=== PATIENT | female | born 1935 | race Caucasian/White ===

== ENCOUNTER 2017-01-17 17:33 | Inpatient (IN) | payer OTHER ==
[~2017-01-17] VITALS: Ht 160 cm; Wt 69.9 kg
--- NOTE | ~2017-01-17 | EKG ---
[address] [place] [address] ELECTROCARDIOGRAM REPORT Name: BC CALVIN Room #: 304-P ADM IN M.R.#: [id number] Admission: 01/17/17 Attend Phys: Gabino De Leon MD Discharge: Date of : 33 Report #: [id number] THIS REPORT FOR: //name// [facility] ED Test Date: 2017-01-17 Test Time: 18:15:03 Pat Name: BC CALVIN Department: Room: [facility] Gender: F Character Impersonator: FARHEEN : 1935 Requested By: Filemon Florentino Order Number: [id number] MD: Ildefonso Whitney Measurements Intervals [place] Rate: 68 P: 32 MD: 178 QRS: -34 QRSD: 99 T: 169 QT: 402 QTc: 428 Interpretive Statements Sinus rhythm Multiple premature complexes, vent & supraven LVH with secondary repolarization abnormality Inferior infarct, old Poor R wave progression Compared to ECG 03/08/2008 14:02:04 Ventricular and supraventricular ectopy is now present Electronically Signed On 01-18-2017 18:18:42 CDT by Ildefonso Whitney [email or web address] <ELECTRONICALLY SIGNED> By: Ildefonso Whitney MD, [facility] 01/18/17 1818 14 14 Ildefonso Whitney MD, [facility] /EPI
[2017-01-17 17:34] VITALS: BP 150/106
[2017-01-17 18:04] LABS: URINE BILIRUBIN NEGATIVE (Negative); URINE BLOOD NEGATIVE (Negative); URINE COLOR YELLOW; URINE GLUCOSE-RANDOM* NEGATIVE (Negative); URINE KETONES TRACE (Negative); URINE LEUKOCYTES-REFLEX NEGATIVE (Negative); URINE PROTEIN (DIPSTICK) TRACE (Negative); URINE SPECIFIC GRAVITY 1.015 (1.003-1.035); URINE UROBILINOGEN 0.2 E.U./dl (0.2-1.0)
[2017-01-17 18:32] LABS: HEMATOCRIT 40.8 % (37.0-47.0); MCH 31.1 pg (26.0-34.0); MCHC 34.3 g/dL (28.0-37.0); MCV 90.6 fL (80.0-100.0); PLATELET COUNT 315 thou/uL (150-400); RDW 12.9 % (10.5-14.5); WBC 17.8 thou/uL (4.0-11.0)
[2017-01-17 18:33] LABS: MANUAL DIFF YES
[2017-01-17 18:40] LABS: ANION GAP 9 mmol/L (7-16); BUN 30 mg/dL (7-18); CALCIUM 9.5 mg/dL (8.5-10.1); CHLORIDE 99 mmol/L (98-107); CO2 31 mmol/L (21-32); GLUCOSE 132 mg/dL (74-106); SODIUM 139 mmol/L (136-145)
[2017-01-17 18:42] LABS: POTASSIUM 2.4 mmol/L (3.5-5.1)
[2017-01-17 18:50] LABS: ALBUMIN 3.5 g/dL (3.4-5.0); ALKALINE PHOSPHATASE 73 U/L (46-116); SGOT 41 U/L (15-37); SGPT 38 U/L (30-65); TOTAL BILIRUBIN 0.9 mg/dL (<0.1-1.0); TOTAL PROTEIN 7.2 g/dL (6.4-8.2); TROPONIN-I < 0.04 ng/mL (<0.04-0.07)
[2017-01-17 19:12] LABS: ABSOLUTE NEUTROPHILS 15.7 thou/uL (1.4-8.2); HYPOCHROMASIA SLIGHT; TOTAL CELL COUNT 100
[2017-01-17 19:13] LABS: ANISOCYTOSIS SLIGHT
[2017-01-17] MEDS ORDERED: PRAVACHOL40 MG PO (19:20)
[2017-01-17] MEDS ORDERED: LASIX 40 MG TAB40 M2 PO (19:21)
[2017-01-17] MEDS ORDERED: ENALAPRIL MALEA20 MG PO (19:21)
[2017-01-17] MEDS ORDERED: TENORMIN50 MG PO (19:21)
[2017-01-17 19:35] VITALS: BP 124/63
[2017-01-17 19:55] VITALS: BP 132/51
[2017-01-17 20:15] VITALS: BP 142/59
[2017-01-17] MEDS ORDERED: AFEDITAB CR60 MG PO (21:28)
[2017-01-17] MEDS ORDERED: NIFEDIPINE ER60 M1 PO (21:30)
[2017-01-18] VITALS: BP 147/69
[2017-01-18 04:00] VITALS: BP 147/68
[2017-01-18 06:57] LABS: HEMATOCRIT 36.9 % (37.0-47.0); HEMOGLOBIN 12.7 gm/dL (12.0-15.0); MCH 31.2 pg (26.0-34.0); MCHC 34.4 g/dL (28.0-37.0); MCV 90.8 fL (80.0-100.0); RBC 4.07 mil/uL (4.20-5.00); RDW 12.7 % (10.5-14.5); WBC 12.4 thou/uL (4.0-11.0)
[2017-01-18 07:25] LABS: CALCIUM 8.4 mg/dL (8.5-10.1); CREATININE 0.7 mg/dL (0.6-1.0)
[2017-01-18 08:00] VITALS: BP 126/67
[2017-01-18] MEDS ORDERED: PRAVACHOL40 MG PO (10:23)
[2017-01-18 16:00] VITALS: BP 111/64
[2017-01-18 19:55] VITALS: BP 128/62
[2017-01-19 04:10] VITALS: BP 128/65
[2017-01-19 04:15] VITALS: BP 134/88
[2017-01-19 06:34] LABS: ALBUMIN 2.9 g/dL (3.4-5.0); CALCIUM 8.5 mg/dL (8.5-10.1); CREATININE 0.6 mg/dL (0.6-1.0); PHOSPHORUS 2.4 mg/dL (2.5-4.9); POTASSIUM 3.6 mmol/L (3.5-5.1)
[2017-01-19 07:14] VITALS: BP 134/77
[2017-01-19 08:08] VITALS: BP 134/77
[2017-01-19 11:05] VITALS: BP 134/77
[2017-01-19 12:45] VITALS: BP 134/77
== END 2017-01-19 13:46 | disposition home health service (06) | DRG 683 ==
LOC: ER 17:33 → EROBS 19:15 → 3N 19:15
PROVIDERS: Hospitalist; Nurse Practitioner Family; Physician Assistant
DX: N17.9 Acute kidney failure, unspecified (principal); E44.1 Mild protein-calorie malnutrition; E87.6 Hypokalemia; I10 Essential (primary) hypertension; E78.00 Pure hypercholesterolemia, unspecified; M19.90 Unspecified osteoarthritis, unspecified site; E78.5 Hyperlipidemia, unspecified; D72.829 Elevated white blood cell count, unspecified; R32 Unspecified urinary incontinence; W18.30XA Fall on same level, unspecified, initial encounter; Z68.27 Body mass index [BMI] 27.0-27.9, adult; Y93.89 Activity, other specified; Y92.89 Other specified places as the place of occurrence of the external cause; Y99.8 Other external cause status; Z79.899 Other long term (current) drug therapy; Z88.0 Allergy status to penicillin
CPT/HCPCS: 10094

== ENCOUNTER 2017-07-05 09:33 | Inpatient (IN) | payer OTHER ==
[~2017-07-05] VITALS: Ht 162.6 cm; Wt 72.1 kg
--- NOTE | ~2017-07-05 | HC ---
[facility] [place] [address] CONSULTATION Name: BC CALVIN Room #: 446-P [facility] IN .R.#: [id number] Admission: 07/05/17 Attend Phys: Gabino De Leon MD Discharge: 07/10/17 Date of : 33 Report #: [id number] THIS REPORT FOR: //name// CC: Gabino Roy DATE OF SERVICE: 07/06/2017 HISTORY OF PRESENT ILLNESS: The patient is an 82-year-old white female, who lives at home alone. She has had problems with multiple falls the past week. She notes her legs gave out. Complains of rolling the left ankle. X-rays were negative. She has been seen by a geriatric nurse practitioner, who recommended stopping the hydrochlorothiazide, dropping the dose of Lasix. It was thought that dehydration and being ill have contributed. PAST MEDICAL HISTORY: Includes hypertension, hyperlipidemia, unstable gait, for which she utilizes a walker. ALLERGIES: PENICILLIN. MEDICATIONS: Please see the full medication listing. FAMILY HISTORY: Noncontributory. HABITS: No history of tobacco or alcohol abuse. SOCIAL HISTORY: Lives in an apartment alone. No steps. She has family in [place]. She has quaker support locally and has a neighbor that is a nurse that checks in on her from her apartment complex. REVIEW OF SYSTEMS: Did not offer any current complaints of chest pain, shortness of breath or abdominal discomfort. No focal extremity pain complaints. PHYSICAL EXAMINATION: GENERAL: She is a pleasant, 82-year-old, right-handed, white female, overweight, no obvious distress. She is alert, pleasant. VITAL SIGNS: Last recorded temperature is 98.4, pulse 67, respirations 20, blood pressure 137/79. HEENT: Appeared to be benign. No obvious visual field neglect. EXTREMITIES: She has IV in the left upper extremity and may have some difficulty moving that left hand more from the IV than from actual weakness. Her lower extremities, her strength is probably a grade 3+/5. DTRs are 1 to trace. Functionally, she is max assist with sit to stand. Gait was 2 feet max assist with a front-wheeled walker. Physical therapy noted she was retropulsive, leaning to the right, and occupational therapy, actually [address] [address] CONSULTATION Name: BC CALVIN Room #: 446-P [facility] IN [facility]#: [id number] Admission: 07/05/17 Attend Phys: Gabino De Leon MD Discharge: 07/10/17 Date of : 33 Report #: [id number] documented some left-sided inattention. ASSESSMENT: An 82-year-old white female with the following problem list: 1. Would like to rule out a cerebrovascular accident as a possibility with the retropulsive tendency with the right-sided lean and even some left inattention has been noted in therapy. 2. Recurrent falls. 3. Complaint of rolling left ankle. X-rays were negative. We will add an Aircast brace to see if that will help. 4. Dehydration. Holding diuretics. 5. Hypertension. 6. Hyperlipidemia. 7. Premorbid history of unstable gait, utilizing a walker. 8. Chronic lower extremity edema. PLAN: Therapies are working with her and we will assess further regarding her rehab therapy needs and potential for rehabilitation as she further stabilizes. Thank you for asking us to assist in this patient's care. <ELECTRONICALLY SIGNED> By: Boy Capps MD 08/04/17 1408 1554 0056 Boy Capps MD /nt
--- NOTE | ~2017-07-05 | EKG ---
[address] [address] [facility] [place] [address] ELECTROCARDIOGRAM REPORT Name: BC CALVIN Room #: 446-P ADM IN .R.#: [id number] Admission: 07/05/17 Attend Phys: Gabino De Leon MD Discharge: Date of : 33 Report #: [id number] THIS REPORT FOR: //name// [facility] ED Test Date: 2017-07-05 Test Time: 10:01:03 Pat Name: BC CALVIN Department: Room: 446 Gender: F Senior Manager [employer]: [place] : 1935 Requested By: Mary Warren Order Number: [id number] MD: Ildefonso Whitney Measurements Intervals [place] Rate: 84 P: 51 CA: 181 QRS: -32 QRSD: 104 T: 40 QT: 373 QTc: 441 Interpretive Statements Sinus rhythm Multiple premature complexes, vent & supraven Left ventricular hypertrophy Inferior infarct, old Poor R wave progression Compared to ECG 01/17/2017 18:15:03 No significant change was found Electronically Signed On 07-05-2017 17:31:43 SALES STORE CHECKER by Ildefonso Whitney [email or web address] <ELECTRONICALLY SIGNED> By: Ildefonso Whitney MD, [facility] 07/05/17 1731 1001 1001 Ildefonso Whitney MD, [facility] /EPI
--- NOTE | ~2017-07-05 | HC ---
[facility] [place] [address] CONSULTATION Name: BC CALVIN Room #: 446-P ADM IN M.R.#: [id number] Admission: 07/05/17 Attend Phys: Gabino De Leon MD Discharge: Date of : 33 Report #: [id number] THIS REPORT FOR: //name// CC: Gabino Roy DATE OF SERVICE: 07/08/2017 REFERRING PROVIDER: Kelvin Lomas MD. REASON FOR CONSULTATION: Cholecystitis and leukocytosis. HISTORY OF PRESENT ILLNESS: The patient is an 82-year-old female who lives at home alone and has suffered intermittent falls which she states usually happen after being dehydrated for her. The patient was admitted 3 days ago after another subsequent fall over the past week where she was lying down on the ground and her neighbor found her and called EMS. The patient states she caught a stomach bug last weekend where she complained of nausea, crampy abdominal pain and dehydration. The patient has been admitted here for full evaluation and supportive care and has made marked improvement. As the patient has continued with a low level leukocytosis of approximately 17,000, a CT scan of the abdomen and pelvis was obtained yesterday, which returned consistent with possible acute cholecystitis with significant gallbladder wall thickening and pericholecystic edema. For that reason, I have been asked to evaluate. Upon exam today, the patient states she has no abdominal complaints whatsoever, is tolerating oral intake and having no further abdominal symptoms. PAST MEDICAL HISTORY: Hypertension, hyperlipidemia, stress incontinence, recurrent falls. HOME MEDICATIONS: Hydrochlorothiazide, Lasix, potassium, atenolol, nifedipine, pravastatin, and enalapril. ALLERGIES: TO PENICILLIN AND SEASONAL ALLERGIES. FAMILY HISTORY: Reviewed and noncontributory. SOCIAL HISTORY: The patient does not utilize tobacco, alcohol or illicit drugs. REVIEW OF SYSTEMS: GENERAL: The patient denies nocturnal fevers or chills. HEENT: No change in vision, change in hearing. NECK: No swelling or difficulty swallowing. HEART: No chest pain or palpitations. LUNGS: No cough or shortness of breath. ABDOMEN: No nausea, no vomiting currently. [facility] [address] [place] [address] CONSULTATION Name: BC CALVIN Room #: 446-P [facility] IN [facility]#: [id number] Admission: 07/05/17 Attend Phys: Gabino De Leon MD Discharge: Date of : 33 Report #: [id number] GENITOURINARY: No dysuria or hematuria. ENDOCRINE: No polyuria, polydipsia. HEMATOLOGIC: No history of bleeding or easy bruising. EXTREMITIES: No history weakness or limited range of motion. NEUROLOGIC: Positive history of syncope and fall. PSYCHIATRIC: No history of anxiety or depression. PHYSICAL EXAMINATION: VITAL SIGNS: Temperature 97.7, pulse 71, respirations 18, blood pressure 156/67. She stands 5 feet 4 inches tall and weighs 159 pounds. GENERAL: She is alert and oriented, in no acute distress. HEENT: Normocephalic, atraumatic. Pupils equal, round, reactive to light. NECK: Supple, without lymphadenopathy. Trachea midline. HEART: Regular rate and rhythm. LUNGS: Clear to auscultation bilaterally. ABDOMEN: Soft, nontender, nondistended. She has no guarding, rebound or peritoneal signs or symptoms whatsoever. GENITOURINARY: Normal external female genitalia. EXTREMITIES: No clubbing, cyanosis or edema. NEUROLOGIC: Cranial nerves 2-12 are grossly intact. PSYCHIATRIC: Normal mood and affect. SKIN AND INTEGUMENT: No abnormal lesions or moles. LABORATORY AND X-RAY DATA: CBC shows white blood cell count of 17,800, hemoglobin 12.5, platelets 400,000. Creatinine is 0.7. CRP is elevated at 97.4. Sed rate is elevated at 52. Procalcitonin is normal at 0.31. MRI of the head showed generalized volume loss and chronic small vessel changes with no acute abnormality. Her BNP was recently elevated at [address] scan of the abdomen and pelvis performed late yesterday showed gallbladder wall thickening with pericholecystic edema consistent with acute cholecystitis. ASSESSMENT AND PLAN: An 82-year-old female with recurrent falls and a persistent leukocytosis, who underwent CT scan imaging of the abdomen and pelvis yesterday showing acute cholecystitis with gallbladder wall thickening and pericholecystic edema. The patient did have symptoms consistent with cholecystitis over 1 week ago, which has completely resolved and she is absolutely asymptomatic today. Due to her leukocytosis and the inflammation seen on CT, I do recommend initiating antibiotic therapy and IN LIGHT OF HER PENICILLIN ALLERGY, she will be placed on Levaquin and Flagyl at this time. I suspect she will make complete recovery from her cholecystitis with utilization of antibiotic therapy alone, although should she decompensate due to the ongoing inflammation of greater than 1 week, she would necessitate urgent percutaneous cholecystostomy tube placement by IR. At this time, I am hopeful she will continue to improve with just antibiotic therapy alone, however. [facility] [address] [place] [address] CONSULTATION Name: BC CALVIN Room #: 446-P ADM IN M.R.#: [id number] Admission: 07/05/17 Attend Phys: Gabino De Leon MD Discharge: Date of : 33 Report #: [id number] I sincerely appreciate this consult. I will follow closely and leave any further recommendations in the patient's chart as appropriate. <ELECTRONICALLY SIGNED> By: Philippe Cespedes MD, FACS 07/09/17 1015 1132 192 Philippe Cespedes MD, FACS /nt
[~2017-07-05 09:33] MED LIST: AFEDITAB CR60 MG PO; ENALAPRIL MALEA20 MG PO; LASIX 40 MG TAB40 M2 PO; NIFEDIPINE ER60 M1 PO; PRAVACHOL40 MG PO; TENORMIN50 MG PO
[2017-07-05 09:34] VITALS: BP 169/58
[2017-07-05 09:58] LABS: ABSOLUTE NEUTROPHILS 14.1 thou/uL (1.4-8.2); BASOPHILS 0.4 % (0.0-2.0); EOSINOPHILS 1.4 % (0.0-3.0); HEMATOCRIT 38.1 % (37.0-47.0); HEMOGLOBIN 12.9 gm/dL (12.0-15.0); LYMPHOCYTES 6.9 % (24.0-44.0); MCH 30.8 pg (26.0-34.0); MCHC 33.9 g/dL (28.0-37.0); MONOCYTES 7.2 % (1.0-8.0); PLATELET COUNT 337 thou/uL (150-400); POLYS 84.1 % (36.0-66.0); RBC 4.19 mil/uL (4.20-5.00); RDW 13.7 % (10.5-14.5); WBC 16.8 thou/uL (4.0-11.0)
[2017-07-05 10:09] LABS: ANION GAP 12 mmol/L (7-16); BUN 42 mg/dL (7-18); CALCIUM 8.6 mg/dL (8.5-10.1); CHLORIDE 101 mmol/L (98-107); CO2 26 mmol/L (21-32); GLUCOSE 138 mg/dL (74-106); POTASSIUM 3.3 mmol/L (3.5-5.1); SODIUM 139 mmol/L (136-145)
[2017-07-05 10:16] LABS: ALBUMIN 2.8 g/dL (3.4-5.0); SGOT 23 U/L (15-37); SGPT 23 U/L (30-65); TOTAL BILIRUBIN 0.6 mg/dL (<0.1-1.0); TROPONIN-I < 0.04 ng/mL (<0.06)
[2017-07-05 10:30] LABS: URINE BILIRUBIN NEGATIVE (Negative); URINE BLOOD NEGATIVE (Negative); URINE CLARITY CLEAR; URINE COLOR YELLOW; URINE GLUCOSE-RANDOM* NEGATIVE (Negative); URINE KETONES TRACE (Negative); URINE LEUKOCYTES NEGATIVE (Negative); URINE NITRITE NEGATIVE (Negative); URINE PROTEIN (DIPSTICK) NEGATIVE (Negative); URINE UROBILINOGEN 0.2 E.U./dl (0.2-1.0)
[2017-07-05] MEDS ORDERED: HYDROCHLOROTH12.5 M1 PO (11:38)
[2017-07-05] MEDS ORDERED: LASIX 40 MG TAB40 M2 PO (11:38)
[2017-07-05] MEDS ORDERED: ATENOLOL 50MG T50 M1 PO (11:39)
[2017-07-05] MEDS ORDERED: K-DUR 20 MEQ T20 MEQ PO (11:39)
[2017-07-05 14:31] VITALS: BP 117/61
[2017-07-05 17:16] VITALS: BP 133/82
[2017-07-05 19:50] VITALS: BP 121/62
[2017-07-06] VITALS (7 sets, daily range): BP systolic 131–1222; BP diastolic 59–95
[2017-07-06 03:55] LABS: ABSOLUTE NEUTROPHILS 12.1 thou/uL (1.4-8.2); BASOPHILS 0.4 % (0.0-2.0); EOSINOPHILS 2.7 % (0.0-3.0); HEMATOCRIT 34.9 % (37.0-47.0); HEMOGLOBIN 11.9 gm/dL (12.0-15.0); LYMPHOCYTES 7.1 % (24.0-44.0); MCH 30.9 pg (26.0-34.0); MCHC 34.1 g/dL (28.0-37.0); MCV 90.6 fL (80.0-100.0); PLATELET COUNT 337 thou/uL (150-400); POLYS 80.8 % (36.0-66.0); RBC 3.85 mil/uL (4.20-5.00); RDW 13.4 % (10.5-14.5)
[2017-07-06 04:02] LABS: CALCIUM 8.2 mg/dL (8.5-10.1); CREATININE 0.7 mg/dL (0.6-1.0); MAGNESIUM 1.8 mg/dL (1.8-2.4); POTASSIUM 3.5 mmol/L (3.5-5.1)
[2017-07-07 03:13] VITALS: BP 136/62
[2017-07-07 06:52] LABS: HEMATOCRIT 38.1 % (37.0-47.0); HEMOGLOBIN 12.7 gm/dL (12.0-15.0); MCH 30.7 pg (26.0-34.0); MCHC 33.3 g/dL (28.0-37.0); MCV 92.1 fL (80.0-100.0); RBC 4.14 mil/uL (4.20-5.00); RDW 13.7 % (10.5-14.5); WBC 17.7 thou/uL (4.0-11.0)
[2017-07-07 06:55] LABS: CALCIUM 8.6 mg/dL (8.5-10.1); CREATININE 0.6 mg/dL (0.6-1.0)
[2017-07-07 08:00] VITALS: BP 125/58
[2017-07-07 16:00] VITALS: BP 144/72
[2017-07-07 19:15] VITALS: BP 168/74
[2017-07-08 03:35] VITALS: BP 151/75
[2017-07-08 03:54] LABS: HEMATOCRIT 37.6 % (37.0-47.0); HEMOGLOBIN 12.5 gm/dL (12.0-15.0); MCH 30.3 pg (26.0-34.0); MCHC 33.2 g/dL (28.0-37.0); MCV 91.2 fL (80.0-100.0); RBC 4.13 mil/uL (4.20-5.00); RDW 13.2 % (10.5-14.5); WBC 17.8 thou/uL (4.0-11.0)
[2017-07-08 04:01] LABS: CALCIUM 8.3 mg/dL (8.5-10.1); CREATININE 0.7 mg/dL (0.6-1.0); POTASSIUM 3.8 mmol/L (3.5-5.1)
[2017-07-08 08:38] VITALS: BP 156/67
[2017-07-08 08:43] VITALS: BP 156/67
[2017-07-08 17:46] VITALS: BP 128/69
[2017-07-08 20:01] VITALS: BP 135/55
[2017-07-09 05:45] VITALS: BP 138/63
[2017-07-09 07:09] LABS: HEMATOCRIT 37.1 % (37.0-47.0); HEMOGLOBIN 12.1 gm/dL (12.0-15.0); MCH 30.1 pg (26.0-34.0); MCHC 32.6 g/dL (28.0-37.0); MCV 92.2 fL (80.0-100.0); RBC 4.02 mil/uL (4.20-5.00); RDW 13.3 % (10.5-14.5); WBC 13.9 thou/uL (4.0-11.0)
[2017-07-09 07:16] LABS: CALCIUM 8.6 mg/dL (8.5-10.1); CREATININE 0.8 mg/dL (0.6-1.0); MAGNESIUM 1.9 mg/dL (1.8-2.4); POTASSIUM 4.3 mmol/L (3.5-5.1)
[2017-07-09 08:30] VITALS: BP 138/67
[2017-07-09 16:30] VITALS: BP 146/64
[2017-07-09 19:55] VITALS: BP 144/58
[2017-07-10 04:34] VITALS: BP 142/59
[2017-07-10 06:13] LABS: HEMATOCRIT 35.5 % (37.0-47.0); HEMOGLOBIN 11.8 gm/dL (12.0-15.0); MCH 30.5 pg (26.0-34.0); MCHC 33.3 g/dL (28.0-37.0); MCV 91.4 fL (80.0-100.0); RBC 3.89 mil/uL (4.20-5.00); RDW 13.6 % (10.5-14.5); WBC 13.2 thou/uL (4.0-11.0)
[2017-07-10 06:31] LABS: CALCIUM 8.3 mg/dL (8.5-10.1); CREATININE 0.8 mg/dL (0.6-1.0); MAGNESIUM 1.8 mg/dL (1.8-2.4); POTASSIUM 3.9 mmol/L (3.5-5.1)
[2017-07-10 08:32] VITALS: BP 144/64
[2017-07-10] MEDS ORDERED: LEVAQUIN 750 M750 MG PO (12:48)
[2017-07-10] MEDS ORDERED: FLAGYL500 MG PO (12:48)
[2017-07-10] MEDS ORDERED: B-12500 MCG PO (12:49)
[2017-07-10 16:02] VITALS: BP 165/65
[2017-07-21] MEDS ORDERED: B-12500 MCG PO (16:53)
[2017-07-21] MEDS ORDERED: FLAGYL500 MG PO (16:53)
[2017-07-21] MEDS ORDERED: LEVAQUIN 750 M750 MG PO (16:53)
[2018-01-09] MEDS ORDERED: LASIX 40 MG TAB40 M2 PO (01:38)
[2018-01-11] MEDS ORDERED: LEVOFLOXACIN750 MG PO (13:34)
== END 2017-07-10 19:51 | DRG 444 ==
LOC: ER 09:33 → 4S 10:53 → EROBS 10:53 → 4S 14:06
PROVIDERS: Hospitalist; Internal Medicine; Nurse Practitioner; Physician Assistant
DX: K81.0 Acute cholecystitis (principal); E43 Unspecified severe protein-calorie malnutrition; E87.6 Hypokalemia; I10 Essential (primary) hypertension; E78.5 Hyperlipidemia, unspecified; D72.829 Elevated white blood cell count, unspecified; Z60.2 Problems related to living alone; R29.6 Repeated falls; E86.0 Dehydration; F32.9 Major depressive disorder, single episode, unspecified; H91.90 Unspecified hearing loss, unspecified ear; K59.00 Constipation, unspecified; Z28.21 Immunization not carried out because of patient refusal; Z88.0 Allergy status to penicillin; Z79.899 Other long term (current) drug therapy; Z68.27 Body mass index [BMI] 27.0-27.9, adult
CPT/HCPCS: 10195

== ENCOUNTER 2017-07-10 12:41 | Inpatient (IN) | payer OTHER ==
[~2017-07-10] VITALS: Ht 162.6 cm; Wt 77.4 kg
--- NOTE | ~2017-07-10 | HC ---
[facility] [place] [address] CONSULTATION Name: BC CALVIN Room #: 501-A [facility] IN ..#: [id number] Admission: 07/10/17 Attend Phys: Boy Capps MD Discharge: Date of : 33 Report #: [id number] THIS REPORT FOR: //name// CC: Boy Capps Felix Manuela DATE OF SERVICE: 07/15/2017 NEUROBEHAVIORAL STATUS EXAM ATTENDING PHYSICIAN: Boy Capps MD CONTAINER COORDINATOR: Rolan Talley, PhD CLINICAL PRESENTATION: The patient is an 82-year-old female admitted to the rehab unit at [facility] for a comprehensive inpatient rehabilitation program to improve functional mobility, activities of daily living and self-care and mental status secondary to medical complexity and general debility. The patient was initially admitted following an incident in which her legs gave out from under her and she fell at her home. She was seen by the Geriatric nurse practitioner on admission to the hospital and was diagnosed with delirium. Problems with abdominal discomfort were diagnosed and she ended developing an acute cholecystitis. Electrolyte abnormalities were noted and potassium replacement required. PAST MEDICAL HISTORY: Hypertension, hyperlipidemia and unstable gait. A complete description of her medical condition and history along with medications can be found in her medical record. Neuropsychological consultation was requested to provide assistance in the assessment of cognitive and emotional status and to provide recommendations and services. Prior to this most recent admission, she was living independently in her own apartment. The patient is a retired schoolteacher. She has a master's degree in education. She has a supportive network in her apartment complex. The patient had discontinued driving. She was managing medications and nutrition through online ordering and delivery. The patient had never and has no children. TECHNIQUES UTILIZED: Clinical interview, review of medical records, staff consultation and behavioral observation, Mini-Mental Status exam 2 standard version, clock drawing and calibrated ideational fluency assessment (letter and category) and brief abstract reasoning test. EXAMINATION FINDINGS: The patient was alert and cooperative with the assessment. She accurately described events surrounding her admission and the reason for hospitalization. There is no evidence of aphasia. She does not [facility] [address] [address] CONSULTATION Name: BC CALVIN Room #: 501-A [facility] IN ..#: [id number] Admission: 07/10/17 Attend Phys: Boy Capps MD Discharge: Date of : 33 Report #: [id number] report auditory or visual hallucinations. There is no thought disorder. She describes her symptoms to mainly include sleep disturbance and anxiety. She does not report difficulty with memory, word finding, appetite or depression. Her performance on the MMSE 2 brief version was within normal limits with a raw score of 15 of 16. She was 3/3 for initial registration, 5/5 for orientation to time and place and 2/3 for immediate recall of 3 items after a brief time delay and distraction. Her performance on the MMSE 2 standard version was within normal limits with a raw score of 27 of 30. She was 4/5 for serial sevens, 2/2 for naming, 1/1 for repetition, 3/3 for comprehension, 1/1 for reading and following a single command and writing a sentence. The patient was unable to accurately copy a simple geometric design. The patient had impairment on clock drawing. She was able to place the numbers in the clock, but was unable to accurately set the hands at a designated time. Letter fluency was in the mild range of impairment with a raw score of 20 and a T score of 37, which is at the 10th percentile. Category fluency was at the 3rd percentile with a T score of 31. Overall, total fluency was in the wyia-hy-hylozdmz range of impairment with a T score of 32 and percentile rank of 4. The patient was 8/8 for a brief abstract reasoning test. She is presenting with deficits in verbal fluency and clock drawing that are often seen with executive dysfunction. Visual spatial deficits are also noted. Her presentation suggests a subcortical neurodegenerative condition. DIAGNOSTIC IMPRESSION: Neurocognitive disorder with subcortical features, without behavior disorder -- extent to be determined, likely in the mild to moderate range. Adjustment disorder with anxious mood. RECOMMENDATIONS: The patient will likely require an environment to assist in compensation for deficits in motor function responsible for her multiple falls. Reassurance and the use of relaxation techniques will assist in the management of anxiety. The patient's cognitive ability is likely satisfactory for an independent apartment with assistance that is available for help with IADL'S. From a cognitive perspective, her independent living environment could be adequate if a consistent caregive could be indentifed to assist with organization. Assistive living would be the ideal environment for her. [address] [address] CONSULTATION Name: BC CALVIN Room #: 501-A [facility] IN .R.#: [id number] Admission: 07/10/17 Attend Phys: Boy Capps MD Discharge: Date of : 33 Report #: [id number] Thank you very much for allowing me to provide the consultation on this patient. <ELECTRONICALLY SIGNED> By: Rolan Talley, PhD 07/16/17 1254 1627 0541 Rolan Talley, PhD /nt
--- NOTE | ~2017-07-10 | H ---
[facility] [place] [address] HISTORY AND PHYSICAL Name: BC CALVIN Room #: 509-P ADM IN M.R.#: [id number] Admission: 07/10/17 Attend Phys: Boy Capps MD Discharge: Date of : 33 Report #: [id number] THIS REPORT FOR: //name// CC: Boy Roy DATE OF SERVICE: 07/10/2017 HISTORY AND PHYSICAL/POST ADMISSION PHYSICIAN EVALUATION HISTORY OF PRESENT ILLNESS: The patient is an 82-year-old white female who lives at home alone. She had had problems with falls in the past week with her legs giving out. Seen by the Geriatric nurse practitioner, upon admission, who recommended stopping her hydrochlorothiazide and dropping the dose of Lasix. It was thought that she was ill and being dehydrated. She began having problems with abdominal discomfort and was diagnosed with an acute cholecystitis. Surgery has been involved. The plan has been to treat with antibiotics and monitor conservatively. She has had electrolyte abnormalities with replacement of potassium. She has been monitored regarding her hypertension. She has significant functional mobility and ADL deficits and has had a decreased functional level from her premorbid status. She has not been admitted for acute in-hospital inpatient rehabilitation. PAST MEDICAL HISTORY: Includes hypertension, hyperlipidemia, and unstable gait. ALLERGIES: PENICILLIN. MEDICATIONS: Please see the full medication listing. Each of these was individually reconciled and includes her vitamins, herbals, and supplements. FAMILY HISTORY: Noncontributory. HABITS: No history of tobacco or alcohol abuse. SOCIAL HISTORY: Lives in an apartment alone. No steps. She has family in [place]. She has religion support locally and has a neighbor that is a nurse that checks in on her from her apartment complex. REVIEW OF SYSTEMS: No current complaints of chest pain, shortness of breath or abdominal discomfort. No focal extremity pain complaints. Complains of being overall weak and debilitated. PHYSICAL EXAMINATION: GENERAL: Pleasant 82-year-old right-handed white female in no obvious distress. VITAL SIGNS: Last recorded temperature 98.2, pulse 56, respirations 20, blood pressure 146/72. The patient was seen earlier. She does have some pain in left [facility] [address] [place] [address] HISTORY AND PHYSICAL Name: BC CALVIN Room #: 509-P [facility] IN [facility]#: [id number] Admission: 07/10/17 Attend Phys: oBy Capps MD Discharge: Date of : 33 Report #: [id number] shoulder and bilateral knees, which was noted to be chronic. HEENT: Appeared to be benign. She was somewhat sleepy, but would easily arouse. CHEST: Sounded clear to auscultation. CARDIOVASCULAR: Regular rate and rhythm. ABDOMEN: Bowel sounds positive, nontender. GENITOURINARY AND RECTAL: Deferred. EXTREMITIES: Some decreased range of motion of the left shoulder. She tends to favor as noted above. Strength is probably a grade 3-3+/5. Lower extremity strength is grade 3-3+/5. DTRs are 1. Functionally, she has been min assist with basic transfers and has ambulated a short distance min assist. ASSESSMENT: An 82-year-old white female with the following problem list: 1. Medical complexity with generalized debilitation. 2. Recurrent falls. 3. Acute cholecystitis. 4. Electrolyte abnormalities. 5. Hypertension. 6. Unstable gait. 7. Protein calorie malnutrition. 8. Dehydration. 9. Hyperlipidemia. PLAN: The patient is admitted for acute in-hospital inpatient rehabilitation. From a post-admission physician evaluation perspective, there are no relevant changes since the preadmission screening. Please see the above review of prior and current medical and functional conditions and comorbidities. Please see the patient's previous and current functional status. As far as risk of complications, the patient has multiple medical comorbidities as noted above. The initial plan of care involves the interdisciplinary acute inpatient rehabilitation program with goal of maximizing the patient's functional independence so that she can hopefully return back to her prior living situation. Measurable functional goals would be for her to become modified independent with transfers, mobility and ADLs to improve as far as strength and endurance and gait stability, so she can return back home. Goals to be independent in ADLs as well. Prognosis is reasonably good. Estimated length of stay is probably at least 5-10 days pending progress. Diagnosis is appropriate for an acute in-hospital inpatient rehabilitation stay. She does meet the medical necessity criteria and we will have the multiple crm consultant physicians continue to follow while she is on rehabilitation. She [address] [address] HISTORY AND PHYSICAL Name: BC CALVIN Room #: 509-P [facility] IN .#: [id number] Admission: 07/10/17 Attend Phys: Boy Capps MD Discharge: Date of : 33 Report #: [id number] does have the tolerance for therapies and does have appropriate discharge goals back to the home setting. <ELECTRONICALLY SIGNED> By: Boy Capps MD 07/11/17 1109 0817 0840 Boy Capps MD /[facility]
--- NOTE | ~2017-07-10 | HC ---
[facility] [place] [address] CONSULTATION Name: BC CALVIN Room #: 509-P [facility] IN M.R.#: [id number] Admission: 07/10/17 Attend Phys: Boy Capps MD Discharge: Date of : 31 Report #: [id number] THIS REPORT FOR: //name// CC: Boy Roy DATE OF SERVICE: 07/11/2017 REFERRING PROVIDER: Boy Capps. REASON FOR CONSULT: Acute cholecystitis. HISTORY OF PRESENT ILLNESS: The patient is an 82-year-old female who was recently admitted to acute inpatient status after sustaining a fall. The patient recently had a stomach bug although tolerated it without intervention and during her recent hospitalization for her syncopal episode underwent CT scan of the abdomen and pelvis with findings of gallbladder wall thickening and edema as well as a persistent leukocytosis all consistent with acute cholecystitis. The patient was placed on antibiotic therapy and ultimately improved with no abdominal symptoms and has now been admitted to the acute inpatient rehabilitation center and I am asked to evaluate from a surgical standpoint for ongoing management. Currently, the patient states she feels well and has no complaints. PAST MEDICAL HISTORY: Hypertension, hyperlipidemia, stress incontinence and recurrent falls. HOME MEDICATIONS: Hydrochlorothiazide, Lasix, potassium, atenolol, nifedipine, pravastatin and enalapril. ALLERGIES: PENICILLIN AND SHE HAS SEASONAL ALLERGIES. FAMILY HISTORY: Reviewed and noncontributory. SOCIAL HISTORY: The patient does not utilize tobacco, alcohol or illicit drugs. REVIEW OF SYSTEMS: GENERAL: The patient denies nocturnal fevers or chills. HEENT: No change in vision or change in hearing. NECK: No swelling or difficulty swallowing. HEART: No chest pain or palpitations. LUNGS: No cough or shortness of breath. ABDOMEN: No nausea and no vomiting. GENITOURINARY: No dysuria or hematuria. ENDOCRINE: No polyuria or polydipsia. HEMATOLOGIC: No history of bleeding or easy bruising. [facility] [address] [place] [address] CONSULTATION Name: BC CALVIN Room #: 509-P [facility] IN ..#: [id number] Admission: 07/10/17 Attend Phys: Boy Capps MD Discharge: Date of : 31 Report #: [id number] EXTREMITIES: No history weakness or limited range of motion. NEUROLOGIC: Positive history of multiple falls and syncopal episodes. PSYCHIATRIC: No history of anxiety or depression. PHYSICAL EXAMINATION: VITAL SIGNS: Temperature 98.2, pulse 56, respirations 20, blood pressure 146/72. She stands 5 feet 4 inches tall and weighs 158 pounds. GENERAL: Alert and in no acute distress. HEENT: Normocephalic and atraumatic. Pupils are equal, round and reactive to light. NECK: Supple without lymphadenopathy. Trachea midline. HEART: Regular rate and rhythm. LUNGS: Clear to auscultation bilaterally. ABDOMEN: Soft, nontender and nondistended. No guarding, rebound or peritoneal signs or symptoms. GENITOURINARY: Normal external female genitalia. EXTREMITIES: No clubbing, cyanosis or edema. NEUROLOGIC: Cranial nerves 2-12 are grossly intact. PSYCHIATRIC: Normal mood and affect. SKIN AND INTEGUMENT: No abnormal lesions or moles. LABORATORY AND X-RAY DATA: CBC shows white blood cell count of 14.3 thousand, hemoglobin 11.9 and platelets 414,000. Creatinine is 0.8. Recent CT scan showed gallbladder wall thickening with pericholecystic edema all consistent with acute cholecystitis. ASSESSMENT AND PLAN: An 82-year-old female with recurrent falls and a persistent leukocytosis who underwent a CT scan of the abdomen and pelvis showing changes consistent with acute cholecystitis. The patient has been placed on antibiotic therapy and has had improvement in her overall symptoms with slight improvement in her leukocytosis. The patient has now been admitted to acute inpatient rehabilitation and I am following for surgical management of her cholecystitis. Currently, the patient is asymptomatic. Therefore, I recommend continuation of antibiotic therapy and all rehabilitative efforts. We will allow her to have a low fat diet at this time point; however, if she decompensates she would necessitate urgent percutaneous cholecystostomy tube placement by Interventional Radiology. At this time, I am hopeful she will continue to improve with just antibiotic therapy alone. I sincerely appreciate this consult. I will follow along and leave any further recommendations in the patient's chart as appropriate. <ELECTRONICALLY SIGNED> By: Philippe Cespedes MD, FACS 07/11/17 [id number] Philippe Cespedes MD, FACS /nt
--- NOTE | ~2017-07-10 | PLAN ---
[facility] [place] [address] REHAB UNIT PLAN OF CARE Name: BC CALVIN Room #: 509-P ADM IN M.R.#: [id number] Admission: 07/10/17 Attend Phys: Boy Capps MD Discharge: Date of : 31 Report #: [id number] THIS REPORT FOR: //name// CC: Boy Roy DATE OF SERVICE: 07/12/2017 HISTORY: The patient is seen back today in followup. She is in no distress. Last recorded temperature is 98.3, pulse 55, respirations 20, blood pressure 129/63. She has been working with transfers, mod assist, gait 50 feet min assist front-wheeled walker. Lower extremity dressing is mod assist. She has functional comprehension. ASSESSMENT: 1. Medical complexity with generalized debilitation. 2. Recurrent falls. 3. Acute cholecystitis. 4. Electrolyte abnormalities. 5. Hypertension. 6. Unstable gait. 7. Protein calorie malnutrition. 8. Dehydration. 9. Hyperlipidemia. PLAN: The overall plan of care is based on the preadmission screen, post-admission physician evaluation and information garnered from therapy assessments. 1. Estimated length of stay is at least probably 10 days pending progress. 2. Medical prognosis is reasonably good. 3. Anticipated interventions includes the interdisciplinary acute inpatient rehabilitation program with goal of maximizing the patient's functional independence, so she can hopefully return back to her prior living situation. 4. Anticipated functional outcomes would be for the patient to become modified independent with transfers, mobility and ADLs, so she can return back to the home setting. 5. Discharge destination is back to her apartment. 6. Expected therapy by discipline includes PT and OT and speech 1 hour per day each five days a week throughout the duration of the acute inpatient rehabilitation stay. Would think we could taper off the speech therapy and concentrate more on the PT and OT, Speech therapy has been discontinued actually and we are just focusing on PT and OT, so that would be 1-1/2 [place] [address] REHAB UNIT PLAN OF CARE Name: BC CALVIN Room #: 509-P [facility] IN .R.#: [id number] Admission: 07/10/17 Attend Phys: Boy Capps MD Discharge: Date of : 31 Report #: [id number] day each five days a week throughout the duration of the acute inpatient rehabilitation stay. <ELECTRONICALLY SIGNED> By: Boy Capps MD 07/13/17 [id number] Boy Capps MD /[facility]
[~2017-07-10 12:41] MED LIST changes: +ATENOLOL 50MG T50 M1 PO; +HYDROCHLOROTH12.5 M1 PO; +K-DUR 20 MEQ T20 MEQ PO
[2017-07-10] MEDS ORDERED: LEVAQUIN 750 M750 MG PO (12:48)
[2017-07-10] MEDS ORDERED: FLAGYL500 MG PO (12:48)
[2017-07-10] MEDS ORDERED: B-12500 MCG PO (12:49)
[2017-07-10 20:21] VITALS: BP 144/69
[2017-07-11 05:03] LABS: HEMOGLOBIN 11.9 gm/dL (12.0-15.0); MCH 30.3 pg (26.0-34.0); MCHC 33.2 g/dL (28.0-37.0); MCV 91.4 fL (80.0-100.0); RBC 3.94 mil/uL (4.20-5.00); RDW 13.4 % (10.5-14.5); WBC 14.3 thou/uL (4.0-11.0)
[2017-07-11 05:13] LABS: CALCIUM 8.5 mg/dL (8.5-10.1); CREATININE 0.8 mg/dL (0.6-1.0); MAGNESIUM 1.9 mg/dL (1.8-2.4); POTASSIUM 3.9 mmol/L (3.5-5.1)
[2017-07-11 06:49] VITALS: BP 146/72
[2017-07-11 19:57] VITALS: BP 129/63
[2017-07-12 04:18] LABS: CALCIUM 8.2 mg/dL (8.5-10.1); CREATININE 0.8 mg/dL (0.6-1.0); POTASSIUM 3.7 mmol/L (3.5-5.1)
[2017-07-12 04:20] LABS: HEMATOCRIT 34.1 % (37.0-47.0); HEMOGLOBIN 11.5 gm/dL (12.0-15.0); MCH 30.7 pg (26.0-34.0); MCHC 33.7 g/dL (28.0-37.0); MCV 91.3 fL (80.0-100.0); RBC 3.73 mil/uL (4.20-5.00); RDW 13.3 % (10.5-14.5); WBC 12.2 thou/uL (4.0-11.0)
[2017-07-12 06:41] VITALS: BP 134/73
[2017-07-12 19:07] VITALS: BP 137/70
[2017-07-13 08:30] VITALS: BP 123/67
[2017-07-14 06:03] LABS: HEMATOCRIT 35.2 % (37.0-47.0); HEMOGLOBIN 11.9 gm/dL (12.0-15.0); MCH 30.8 pg (26.0-34.0); MCHC 33.9 g/dL (28.0-37.0); MCV 91.1 fL (80.0-100.0); RBC 3.86 mil/uL (4.20-5.00); RDW 13.5 % (10.5-14.5)
[2017-07-14 06:20] LABS: CALCIUM 8.6 mg/dL (8.5-10.1); CREATININE 0.9 mg/dL (0.6-1.0); POTASSIUM 3.9 mmol/L (3.5-5.1)
[2017-07-14 07:45] VITALS: BP 129/55
[2017-07-14 20:11] VITALS: BP 117/63
[2017-07-15 06:43] LABS: CALCIUM 8.6 mg/dL (8.5-10.1); CREATININE 0.9 mg/dL (0.6-1.0); POTASSIUM 3.9 mmol/L (3.5-5.1)
[2017-07-15 08:00] VITALS: BP 127/59
[2017-07-15 20:00] VITALS: BP 112/63
[2017-07-16 05:16] LABS: CALCIUM 8.4 mg/dL (8.5-10.1)
[2017-07-16 09:41] VITALS: BP 123/68
[2017-07-16 20:09] VITALS: BP 107/52
[2017-07-17 08:00] VITALS: BP 120/60
[2017-07-17 19:29] VITALS: BP 100/54
[2017-07-18 04:58] LABS: CALCIUM 8.6 mg/dL (8.5-10.1); MAGNESIUM 2.1 mg/dL (1.8-2.4); POTASSIUM 4.2 mmol/L (3.5-5.1)
[2017-07-18 08:00] VITALS: BP 111/46
[2017-07-18 15:49] VITALS: BP 111/46
[2017-07-18 20:12] VITALS: BP 131/59
[2017-07-19 08:10] VITALS: BP 122/59
[2017-07-19 09:03] VITALS: BP 122/59
[2017-07-19] MEDS ORDERED: FLAGYL500 MG PO (10:10)
[2017-07-19] MEDS ORDERED: ERGOCALCIF50000 UNIT PO (10:10)
[2017-07-19] MEDS ORDERED: LEVAQUIN 750 M750 MG PO (10:10)
[2017-07-19] MEDS ORDERED: LASIX 40 MG TAB40 M2 PO (10:56)
[2017-07-21] MEDS ORDERED: FLAGYL500 MG PO (16:53)
[2017-07-21] MEDS ORDERED: B-12500 MCG PO (16:53)
[2017-07-21] MEDS ORDERED: LEVAQUIN 750 M750 MG PO (16:53)
[2018-01-09] MEDS ORDERED: LASIX 40 MG TAB40 M2 PO (01:38)
[2018-01-11] MEDS ORDERED: LEVOFLOXACIN750 MG PO (13:34)
== END 2017-07-19 14:53 | disposition home health service (06) | DRG 445 ==
LOC: ENTRNSPT 07-19 14:43 → EDTRNSPTSTS 07-19 14:44 → CMPTRNSPT 07-19 15:22
PROVIDERS: Hospitalist; Internal Medicine; Physical Medicine & Rehabilitation
DX: K81.0 Acute cholecystitis (principal); E46 Unspecified protein-calorie malnutrition; I10 Essential (primary) hypertension; E78.5 Hyperlipidemia, unspecified; R29.6 Repeated falls; E86.0 Dehydration; R41.9 Unspecified symptoms and signs involving cognitive functions and awareness; F43.22 Adjustment disorder with anxiety; Z60.2 Problems related to living alone; K59.00 Constipation, unspecified; D72.829 Elevated white blood cell count, unspecified; Z79.899 Other long term (current) drug therapy; Z28.21 Immunization not carried out because of patient refusal; Z88.0 Allergy status to penicillin; Z68.29 Body mass index [BMI] 29.0-29.9, adult
CPT/HCPCS: 10112